=== PATIENT | male | born 1985 | race Two or more races ===

== ENCOUNTER 2020-11-09 19:15 | Emergency (ER) | payer SELFPAY ==
[~2020-11-09] VITALS: Ht 177.8 cm; Wt 88.5 kg
[2020-11-09 19:23] VITALS: BP 141/98
[2020-11-09] MEDS ORDERED: GABAPENTIN 300 MG CAP PO ONE (20:35)
[2020-11-10 02:07] VITALS: BP 121/82
--- NOTE | 2020-11-10 03:10 | NUR ---
Patient discharged with v/s stable. Written and verbal after care instructions given and explained. Patient verbalized understanding. Ambulatory with steady gait. All questions addressed prior to discharge. Advised to follow up with PMD.
== END 2020-11-09 22:30 | disposition home or self-care (01) ==
LOC: MED 19:15
DX: M79.671 Pain in right foot (principal); Z20.828 Contact with and (suspected) exposure to other viral communicable diseases; M79.672 Pain in left foot
CPT/HCPCS: 99283